=== PATIENT | male | born 1950 | race Hispanic/Latino ===

== ENCOUNTER 2017-09-14 06:54 | Day surgery (SDC) | payer OTHER ==
[~2017-09-14] VITALS: Ht 175.3 cm; Wt 85.3 kg
[~2017-09-14 06:54] MED LIST: ALLO300T2 PO; AMLO5TAB2 PO; DOXA2TAB2 PO; INSLAN SQ; INSU100C14 SQ; IRBE300T19 PO; LEVO75TA10 PO; METF10004 PO; METO100T14 PO; PRAV10TA39 PO; SODIUM CHLORIDE 0.9% 1000ML 1,000 ML IV ONE
[2017-09-14 07:16] VITALS: BP 172/81
[2017-09-14] MEDS ORDERED: PROPOFOL 10 MG/ML 20ML VIAL IV ONE ×2 (08:09)
[2017-09-14 08:25] VITALS: BP 126/76
== END 2017-09-14 09:01 | disposition home or self-care (01) ==
LOC: DAH 06:54
PROVIDERS: ATTEND Internal Medicine Gastroenterology
DX: Z09 Encounter for follow-up examination after completed treatment for conditions other than malignant neoplasm (principal); D12.0 Benign neoplasm of cecum; K62.1 Rectal polyp; Z86.010 Personal history of colon polyps; Z80.0 Family history of malignant neoplasm of digestive organs; K21.9 Gastro-esophageal reflux disease without esophagitis; I10 Essential (primary) hypertension; N40.0 Benign prostatic hyperplasia without lower urinary tract symptoms; E11.9 Type 2 diabetes mellitus without complications; E03.8 Other specified hypothyroidism; Z90.49 Acquired absence of other specified parts of digestive tract; K57.30 Diverticulosis of large intestine without perforation or abscess without bleeding
CPT/HCPCS: 45380; 82948 ×2; 88305; 93005; A4606; J2704 ×2; J7030